=== PATIENT | female | born 1980 | race Caucasian/White ===

== ENCOUNTER 2018-02-12 16:38 | Emergency (ER) | payer OTHER ==
[2018-02-12 16:39] VITALS: BMI 23.0
[2018-02-12 16:55] VITALS: BP 104/70; PULSE 89; RESP 18; TEMP 98; O2SAT 99
[2018-02-12] MEDS ORDERED: Albuterol 0.083% Inhal Sol (2.5 mg/3 mL) UD IH STA (17:14)
[2018-02-12] MEDS ORDERED: Albuterol-Ipratrop 3 mg / 0.5 (3 ml) UD ONE (17:37)
--- NOTE | 2018-02-12 17:55 | RAD ---
HISTORY: COUGH COMPARISON: No prior. TECHNIQUE: Chest PA and lateral FINDINGS: LUNGS: No active pulmonary disease. PLEURA: No significant pleural effusion identified. No pneumothorax apparent. CARDIOVASCULAR: Normal. OSSEOUS STRUCTURES: No significant abnormalities. VISUALIZED UPPER ABDOMEN: Normal. OTHER FINDINGS: None. IMPRESSION: No active disease.
--- NOTE | 2018-02-12 17:57 | C.PDOC ---
History Of Present Illness 37 y/o female presents to ED with complaints of non productive cough, sore throat, ear pain, body aches for 3 days with associated lightheadedness and nausea. Patient states she saw PMD 3 days ago and was given cough medicine with no improvement. Patient denies fever, vomiting, diarrhea or any other complaints at this time. Time Seen by Provider: 02/12/18 16:58 Chief Complaint (Nursing): Fever History Per: Patient History/Exam Limitations: no limitations Onset/Duration Of Symptoms: Days Current Symptoms Are (Timing): Still Present Associated Symptoms: Sore Throat, Cough, Nausea Past Medical History Reviewed: Historical Data, Nursing Documentation, Vital Signs Vital Signs: Last Vital Signs Temp 98 F 02/12/18 16:52 Pulse 89 02/12/18 16:52 Resp 18 02/12/18 16:52 BP 104/70 02/12/18 16:52 Pulse Ox 99 02/12/18 17:59 - Medical History PMH: Anemia Surgical History: No Surg Hx - [facility] Procedures LOW CERVICAL (06/24/15) Family History: States: No Known Family Hx - Social History Hx Tobacco Use: No Hx Alcohol Use: No Hx Substance Use: No - Immunization History Hx Tetanus Toxoid Vaccination: No Hx Influenza Vaccination: No Hx Pneumococcal Vaccination: No Review Of Systems Except As Marked, All Systems Reviewed And Found Negative. ENT: Positive for: Ear Pain, Throat Pain Respiratory: Positive for: Cough Gastrointestinal: Positive for: Nausea Skin: Negative for: Rash Physical Exam - Physical Exam Appears: Non-toxic, No Acute Distress, Other (Speaking in full sentences. Hoarse voice noted ) Skin: Warm, Dry, No Rash Head: Atraumatic Eye(s): bilateral: Normal Inspection Ear(s): Bilateral: Normal Oral Mucosa: Moist Throat: Erythema, No Exudate, No Drooling Neck: Normal ROM, Supple Cardiovascular: Rhythm Regular Respiratory: No Accessory Muscle Use, No Rales, No Rhonchi, Wheezing (mild Expiratory bilaterally) Gastrointestinal/Abdominal: Soft, No Tenderness, No Guarding, No Rebound Extremity: Normal ROM, Capillary Refill (<2 seconds) Neurological/Psych: Oriented x3, Normal Speech ED Course And Treatment O2 Sat by Pulse Oximetry: 99 (RA) Progress Note: CXR ordered. Prednisone and Neb treatment administered Disposition Counseled Patient/Family Regarding: Studies Performed, Diagnosis, Need For Followup, Rx Given - Disposition Referrals: [facility] [Outside] Disposition: HOME/ ROUTINE Disposition Time: 18:10 Condition: STABLE Additional Instructions: FOLLOW UP WITH YOUR DOCTOR IN 1-2 DAYS USE MEDICATIONS DIRECTED RETURN TO EMERGENCY ROOM IF SYMPTOMS WORSEN Prescriptions: Albuterol HFA [Ventolin HFA 90 mcg/actuation (8 g)] 0.09 mg IH Q4 PRN #1 puff PRN Reason: Wheezing Naproxen 375 mg PO BID PRN #20 tablet PRN Reason: pain predniSONE [predniSONE Tab] 40 mg PO DAILY #6 tab Instructions: Viral Upper Respiratory Infection, Adult (DC) Forms: [employer] (Greenlandic) Print Language: KHMER - Clinical Impression Clinical Impression: Upper respiratory infection, Bronchospasm, acute, Viral syndrome - Scribe Statement The provider has reviewed the documentation as recorded by the Eduaribjason Del Toro All medical record entries made by the Eduaribjason were at my direction and personally dictated by me. I have reviewed the chart and agree that the record accurately reflects my personal performance of the history, physical exam, medical decision making, and the department course for this patient. I have also personally directed, reviewed, and agree with the discharge instructions and disposition.
== END 2018-02-12 18:19 | disposition home or self-care (01) ==
LOC: C.ER 16:38
DX: J98.01 Acute bronchospasm (principal); J06.9 Acute upper respiratory infection, unspecified

== ENCOUNTER 2018-08-27 12:12 | Emergency (ER) | payer OTHER ==
[2018-08-27 12:12] VITALS: BMI 23.0
[2018-08-27 12:43] VITALS: BP 108/79; RESP 18; TEMP 97.8; O2SAT 99
--- NOTE | 2018-08-27 13:00 | C.PDOC ---
History Of Present Illness 37 year old female presents to the ED for evaluation of sore throat, cough, congestion, and nausea for 2 days. Patient states that her son is sick with similar symptoms and is also being evaluated in the ED. Patient requests are note for work. Denies fever, vomiting, and any other associated symptoms. Time Seen by Provider: 08/27/18 12:31 Chief Complaint (Nursing): Flu-like Symptoms History Per: Patient History/Exam Limitations: no limitations Onset/Duration Of Symptoms: Days Current Symptoms Are (Timing): Still Present Past Medical History Reviewed: Historical Data, Nursing Documentation, Vital Signs Vital Signs: Last Vital Signs Temp 97.8 F 08/27/18 12:37 Pulse 111 H 08/27/18 12:37 Resp 18 08/27/18 12:37 BP 108/79 08/27/18 12:37 Pulse Ox 99 08/27/18 12:37 - Medical History PMH: Anemia - [facility] Procedures LOW CERVICAL (06/24/15) Family History: States: Unknown Family Hx - Social History Hx Tobacco Use: No Hx Alcohol Use: No Hx Substance Use: No - Immunization History Hx Tetanus Toxoid Vaccination: No Hx Influenza Vaccination: No Hx Pneumococcal Vaccination: No Review Of Systems Constitutional: Negative for: Fever, Chills Eyes: Negative for: Redness ENT: Positive for: Nose Congestion, Throat Pain (sore throat.) Cardiovascular: Negative for: Palpitations Respiratory: Positive for: Cough Gastrointestinal: Positive for: Nausea. Negative for: Vomiting Genitourinary: Negative for: Dysuria Neurological: Negative for: Weakness, Numbness, Headache, Dizziness Physical Exam - Physical Exam Appears: Non-toxic, No Acute Distress Skin: Normal Color, Warm, Dry Head: Atraumatic, Normacephalic Eye(s): bilateral: Normal Inspection, EOMI Ear(s): Bilateral: Normal Nose: Normal Oral Mucosa: Moist Throat: Normal, No Erythema, No Exudate Neck: Normal ROM Chest: Symmetrical Cardiovascular: Rhythm Regular, No Murmur Respiratory: Normal Breath Sounds, No Wheezing Gastrointestinal/Abdominal: Normal Exam, Soft, No Tenderness Extremity: Bilateral: Atraumatic, Normal Color And Temperature, Normal ROM Neurological/Psych: Oriented x3, Normal Speech Gait: Steady ED Course And Treatment O2 Sat by Pulse Oximetry: 99 (RA) Pulse Ox Interpretation: Normal Progress Note: Patient stable for discharge home. Prescribed Zofran and Promethazine and advised to follow up with PMD as needed. Medical Decision Making Medical Decision Making: Impression: viral illness Patient remained afebrile alert and oriented with stable vital signs during ER evaluation. Patient appears well non-toxic and in no distress. Rx given. Patient advised to rest, drink fluids and take medications for supportive treatment. Patient stable for discharge and given follow up instructions. Disposition Counseled Patient/Family Regarding: Diagnosis, Need For Followup, Rx Given - Disposition Referrals: Tevin Flores MD [Medical Doctor] - Disposition: HOME/ ROUTINE Disposition Time: 12:56 Condition: GOOD Additional Instructions: You have viral upper respiratory infection. Take Tylenol or Motrin alternating every 4-6 hours for Fever 100.4F or higher. Rest and drink plenty of fluids. May use cool mist humidifier or vaporizer in room. Try taking over the counter antihistamine (Claritin, Radha, Zyrtec), Decongestant or Cough medicine (Mucinex) as needed every 6-8 hours. Follow up with your primary medical doctor or clinic in 1 week for further evaluation. Prescriptions: Ondansetron ODT [Zofran ODT] 1 odt PO BID PRN #6 odt PRN Reason: Nausea/Vomiting Promethazine DM [Phenergan DM Syrup] 5 ml PO Q8 PRN #3 oz PRN Reason: Cough Instructions: Viral Upper Respiratory Infection, Adult (DC) Forms: [facility] (North Korean), Work Excuse - POA Present On Arrival: None - Clinical Impression Clinical Impression: Upper respiratory infection - PA / [employer]ER / Resident Statement MD/DO has reviewed & agrees with the documentation as recorded. - Scribe Statement The provider has reviewed the documentation as recorded by the Scribe (Mayte Martinez) All medical record entries made by the Scribe were at my direction and p ersonally dictated by me. I have reviewed the chart and agree that the record accurately reflects my personal performance of the history, physical exam, medical decision making, and the department course for this patient. I have also personally directed, reviewed, and agree with the discharge instructions and disposition.
[2018-08-27 13:08] VITALS: PULSE 99
== END 2018-08-27 13:06 | disposition home or self-care (01) ==
LOC: C.ER 12:12
DX: J06.9 Acute upper respiratory infection, unspecified (principal)

== ENCOUNTER 2019-01-02 11:14 | Emergency (ER) | payer OTHER ==
[2019-01-02 11:14] VITALS: BMI 23.0
--- NOTE | 2019-01-02 11:46 | C.PDOC ---
History Of Present Illness 38 y/o female presents to the ED for medical evaluation for productive cough x 2 days with associated fever, chills, headache, nausea, and aural fullness. She admits sick contact at home (her son) with similar symptoms. She has been on Ibuprofen with some relief. She denies any recent travel or seasonal allergies. She denies and dizziness, weakness, chest pain, SOB, diarrhea, and abdominal pain. Time Seen by Provider: 01/02/19 11:21 Chief Complaint (Nursing): Flu-like Symptoms History Per: Patient History/Exam Limitations: no limitations Onset/Duration Of Symptoms: Days (2) Current Symptoms Are (Timing): Still Present Location Of Pain: Headache Sick Contacts (Context): Family Member(s) Associated Symptoms: Fever, Chills, Cough, Sputum, Nausea. denies: Sore Throat, Neck Pain, Sinus Drainage, Myalgias, Nasal Congestion, Vomiting, Diarrhea Severity: Mild Pain Scale Rating Of: 3 Recent travel outside of the [place]: No Past Medical History Reviewed: Historical Data, Nursing Documentation, Vital Signs - Medical History PMH: Anemia - [facility] Procedures LOW CERVICAL (06/24/15) Family History: States: Unknown Family Hx - Social History Hx Tobacco Use: No Hx Alcohol Use: No Hx Substance Use: No - Immunization History Hx Tetanus Toxoid Vaccination: No Hx Influenza Vaccination: No Hx Pneumococcal Vaccination: No Review Of Systems Constitutional: Positive for: Fever, Chills. Negative for: Sweats, Weakness ENT: Negative for: Nose Discharge, Nose Congestion, Throat Pain Cardiovascular: Negative for: Chest Pain, Palpitations Respiratory: Positive for: Cough. Negative for: Shortness of Breath Gastrointestinal: Positive for: Nausea. Negative for: Vomiting, Abdominal Pain, Diarrhea Musculoskeletal: Negative for: Neck Pain Skin: Negative for: Rash Neurological: Positive for: Headache. Negative for: Dizziness Physical Exam - Physical Exam Appears: Well, Non-toxic, No Acute Distress Skin: Normal Color, Warm, Dry Head: Atraumatic, Normacephalic, No Tenderness Eye(s): bilateral: Normal Inspection, PERRL Ear(s): Bilateral: Normal (TM intact AU; nonerythematous) Nose: Normal, No Discharge Oral Mucosa: Moist Throat: No Erythema, No Exudate Neck: Normal ROM, Supple Chest: Symmetrical Cardiovascular: Rhythm Regular Respiratory: Normal Breath Sounds, No Rales, No Rhonchi, No Wheezing Gastrointestinal/Abdominal: Soft, No Tenderness Neurological/Psych: Oriented x3, Normal Speech, Normal Cognition, Normal Sensation Gait: Steady Medical Decision Making Medical Decision Making: Plan: Rapid flu obtaine Sudafed and Tylenol given Patient reassessed and notes improvement Flu negative D/W patient that she likely has Viral URI and will treat her symptoms Encouraged rest and hydration Advised to follow up with PCP or return to ED if symptoms persist or worsen Patient verbalized understanding and is in agreement with plan Disposition Counseled Patient/Family Regarding: Studies Performed, Diagnosis, Need For Followup, Rx Given - Disposition Referrals: Yara Winter [Non-Staff] - Disposition: HOME/ ROUTINE Disposition Time: 12:56 Condition: IMPROVED Additional Instructions: MICHAEL FULTON, thank you for letting us take care of you today. Your provider was Catie Zurita MD/Ilia Romano PA-C and you were treated for Viral URI . The emergency medical care you received today was directed at your acute symptoms. If you were prescribed any medication, please fill it and take as directed. It may take several days for your symptoms to resolve. Return to the Emergency Department if your symptoms worsen, do not improve, or if you have any other problems. Please contact your doctor in 1-2 days. Bring any paperwork you were given at discharge with you along with any medications you are taking to your follow up visit. Our treatment cannot replace ongoing medical care by a primary care provider outside of the emergency department. Thank you for allowing the [facility] team to be part of your care today. 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
[2019-01-02 11:50] VITALS: TEMP 98.3
[2019-01-02 13:11] VITALS: BP 100/59; PULSE 101; RESP 18; O2SAT 95
== END 2019-01-02 13:42 | disposition home or self-care (01) ==
LOC: C.ER 11:14
DX: B34.9 Viral infection, unspecified (principal); J06.9 Acute upper respiratory infection, unspecified